=== PATIENT | female | born 1940 | race Caucasian/White ===

== ENCOUNTER 2016-12-04 11:13 | Emergency (ER) | payer MEDICARE, OTHER ==
[~2016-12-04 11:13] MED LIST: AUGMENTIN TAB875 MG PO; BUMEX 1MG TABLET1 MG PO; COREG 3.125M3.125 MG PO; ENDOCET 10-3251 EACH PO; FLEXERIL 10 MG10 MG PO; HYDROXYZINE HCL25 MG PO; LEVAQUIN250 MG PO; MECLIZINE HCL25 MG PO; MEGACE 400400 MG/10 PO; MEGACE400 MG/10 PO; NEURONTIN300 MG PO; NORVASC 5 MG TAB5 MG PO; PREDNISONE2.5 MG PO; PREDNISONE5 MG PO; PROTONIX20 MG PO; SODIUM BICARBO650 MG PO; SYNTHROID88 MCG PO; VITAMIN B-1000 MCG/M IM; VITAMIN D50000 UNIT PO; ZOFRAN4 MG PO
[2016-12-04 12:11] LABS: HEMOGLOBIN 9.9 gm/dl (12.3-15.3); RED BLOOD COUNT 3.33 M/UL (4.00-5.10); WHITE BLOOD COUNT 7.7 K/UL (4.5-11.0)
[2017-04-23] MEDS ORDERED: POTASSIUM CHLO10 ME1 PO (11:08)
[2017-04-23] MEDS ORDERED: NEURONTIN100 MG PO (11:09)
[2017-04-23] MEDS ORDERED: OXYCODONE HCL10 MG PO (11:10)
== END 2016-12-04 18:23 | disposition home or self-care (01) ==
LOC: ER1 11:13
PROVIDERS: Physician Assistant
DX: R50.9 Fever, unspecified (principal); R41.0 Disorientation, unspecified; J18.9 Pneumonia, unspecified organism; Z88.6 Allergy status to analgesic agent; Z85.118 Personal history of other malignant neoplasm of bronchus and lung; Z90.49 Acquired absence of other specified parts of digestive tract
CPT/HCPCS: 36415; 70450; 71010; 77003; 80053; 81001; 82550; 82553; 83605; 83874; 84484; 85025; 85610; 85730; 87040; 87081; 87880; 93005; 96360; 96361; 99284

== ENCOUNTER 2017-01-10 14:04 | Inpatient (IN) | payer MEDICARE, OTHER ==
[~2017-01-10] VITALS: Ht 152.4 cm; Wt 46.9 kg
[2017-01-10 16:56] LABS: HEMOGLOBIN 12.5 gm/dl (12.3-15.3); RED BLOOD COUNT 4.33 M/UL (4.00-5.10); WHITE BLOOD COUNT 4.7 K/UL (4.5-11.0)
[2017-01-11] MEDS ORDERED: ENDOCET 10-3251 EACH PO (01:56)
[2017-01-11] MEDS ORDERED: LEVOXYL88 MCG PO (01:57)
[2017-01-11] MEDS ORDERED: PREDNISONE2.5 MG PO (01:57)
[2017-01-11] MEDS ORDERED: VITAMIN B-1000 MCG/M IM (01:57)
[2017-01-11] MEDS ORDERED: PANTOPRAZOLE SO40 MG PO (01:58)
[2017-01-11] MEDS ORDERED: VITAMIN D5000 UNIT PO (01:59)
[2017-01-11] MEDS ORDERED: BUMEX 1MG TABLET1 MG PO (02:00)
[2017-01-11] MEDS ORDERED: NORVASC 5 MG TAB5 MG PO (02:00)
[2017-01-11] MEDS ORDERED: SODIUM BICARBO650 M1 PO (02:01)
[2017-01-11] MEDS ORDERED: COREG 3.125M3.125 MG PO (16:10)
[2017-01-11] MEDS ORDERED: VITAMIN D250000 UNIT PO (16:12)
[2017-01-11] MEDS ORDERED: NEURONTIN 300300 MG PO (16:13)
[2017-01-11] MEDS ORDERED: MECLIZINE HCL25 MG PO (16:14)
[2017-01-11] MEDS ORDERED: ZOFRAN4 MG PO (16:14)
[2017-01-12 05:42] LABS: WHITE BLOOD COUNT 3.8 K/UL (4.5-11.0)
[2017-01-12 05:43] LABS: HEMOGLOBIN 10.3 gm/dl (12.3-15.3); RED BLOOD COUNT 3.63 M/UL (4.00-5.10)
[2017-01-13 05:08] LABS: HEMOGLOBIN 10.3 gm/dl (12.3-15.3); RED BLOOD COUNT 3.61 M/UL (4.00-5.10); WHITE BLOOD COUNT 4.2 K/UL (4.5-11.0)
[2017-01-14] MEDS ORDERED: OMNICEF 300 MG300 MG PO (14:41)
[2017-01-14] MEDS ORDERED: MAGNESIUM OXID400 MG PO (14:42)
[2017-04-23] MEDS ORDERED: POTASSIUM CHLO10 ME1 PO (11:08)
[2017-04-23] MEDS ORDERED: NEURONTIN100 MG PO (11:09)
[2017-04-23] MEDS ORDERED: OXYCODONE HCL10 MG PO (11:10)
== END 2017-01-14 18:20 | disposition home health service (06) | DRG 690 ==
LOC: ER1 14:04 → ZEROF 19:46 → M/S 22:09
PROVIDERS: Emergency Medicine; ADMIT Internal Medicine
PROC: 0BBC3ZX Excision of Right Upper Lung Lobe, Percutaneous Approach, Diagnostic (ICD-10-PCS; principal; 2017-01-11)
DX: N30.00 Acute cystitis without hematuria (principal); N18.4 Chronic kidney disease, stage 4 (severe); C34.11 Malignant neoplasm of upper lobe, right bronchus or lung; K91.2 Postsurgical malabsorption, not elsewhere classified; J95.61 Intraoperative hemorrhage and hematoma of a respiratory system organ or structure complicating a respiratory system procedure; T81.82XA Emphysema (subcutaneous) resulting from a procedure, initial encounter; Y84.8 Other medical procedures as the cause of abnormal reaction of the patient, or of later complication, without mention of misadventure at the time of the procedure; N25.89 Other disorders resulting from impaired renal tubular function; R07.9 Chest pain, unspecified; E61.2 Magnesium deficiency; B96.1 Klebsiella pneumoniae [K. pneumoniae] as the cause of diseases classified elsewhere; R19.7 Diarrhea, unspecified; R11.2 Nausea with vomiting, unspecified; R55 Syncope and collapse; M32.19 Other organ or system involvement in systemic lupus erythematosus; M32.8 Other forms of systemic lupus erythematosus; M13.80 Other specified arthritis, unspecified site; T38.0X5A Adverse effect of glucocorticoids and synthetic analogues, initial encounter; M32.0 Drug-induced systemic lupus erythematosus; M81.0 Age-related osteoporosis without current pathological fracture; M47.819 Spondylosis without myelopathy or radiculopathy, site unspecified; Z87.891 Personal history of nicotine dependence; Z90.49 Acquired absence of other specified parts of digestive tract; Z88.6 Allergy status to analgesic agent; Z88.7 Allergy status to serum and vaccine; Z88.8 Allergy status to other drugs, medicaments and biological substances; Z79.891 Long term (current) use of opiate analgesic; Z79.52 Long term (current) use of systemic steroids; Z79.899 Other long term (current) drug therapy; Y92.009 Unspecified place in unspecified non-institutional (private) residence as the place of occurrence of the external cause; Z87.440 Personal history of urinary (tract) infections; Z87.310 Personal history of (healed) osteoporosis fracture; Z85.42 Personal history of malignant neoplasm of other parts of uterus
CPT/HCPCS: 36415; 70450; 71010; 74022; 77012; 80048; 80053; 81001; 82550; 82553; 82962; 83690; 83735; 83874; 84484; 85025; 85027; 85610; 85730; 87040; 87077; 87086; 87186; 88341; 88342; 93005; 96361; 96374; 99285; G0378; J0713; J2405; J7030; J7040; J7050

== ENCOUNTER → 2017-02-03 | Outpatient (CLI) | payer MEDICARE, OTHER ==
[~2017-02-03] MED LIST changes: +LEVOXYL88 MCG PO; +MAGNESIUM OXID400 MG PO; +NEURONTIN 300300 MG PO; +NEURONTIN100 MG PO; +OMNICEF 300 MG300 MG PO; +OXYCODONE HCL10 MG PO; +PANTOPRAZOLE SO40 MG PO; +POTASSIUM CHLO10 ME1 PO; +SODIUM BICARBO650 M1 PO; +VITAMIN D250000 UNIT PO; +VITAMIN D5000 UNIT PO
== END ==
LOC: CT 08:41
DX: R93.7 Abnormal findings on diagnostic imaging of other parts of musculoskeletal system (principal); W19.XXXA Unspecified fall, initial encounter; R91.8 Other nonspecific abnormal finding of lung field; S92.412D Displaced fracture of proximal phalanx of left great toe, subsequent encounter for fracture with routine healing
CPT/HCPCS: 71250; 73630

== ENCOUNTER → 2017-03-06 | Outpatient (CLI) | payer MEDICARE, OTHER | LOC: RAD 13:40 | DX: S49.90XA Unspecified injury of shoulder and upper arm, unspecified arm, initial encounter (principal) | CPT/HCPCS: 73080 ==